=== PATIENT | male | born 1950 | race Caucasian/White ===

== ENCOUNTER 2021-09-01 10:03 | Outpatient (CLI) | payer MEDICARE, BC | END 2021-09-01 10:04 | disposition home or self-care (01) | LOC: TBSIIMAG 10:03 | PROVIDERS: ATTEND Orthopaedic Surgery | DX: M54.41 Lumbago with sciatica, right side (principal); M47.816 Spondylosis without myelopathy or radiculopathy, lumbar region | CPT/HCPCS: 72148 ==

== ENCOUNTER 2024-07-07 21:08 | Observation (INO) | payer MEDICARE, BC ==
[2024-07-07 22:40] VITALS: BMI 36.0
[2024-07-07] MEDS ORDERED: Acetaminophen 325 MG TAB PO PRN (23:23)
[2024-07-07] MEDS ORDERED: Ondansetron PF 4 MG/2 ML Vial IVP PRN (23:23)
[2024-07-07] MEDS ORDERED: Insulin Lispro 100 UNIT/ML 10 ML VIAL SC PRN ×2 (23:25)
[2024-07-07] MEDS ORDERED: Dextrose 5% in Water 1,000 ML IV PRN (23:25)
[2024-07-07] MEDS ORDERED: Glucagon 1 MG/ML KIT IM PRN (23:25)
[2024-07-07] MEDS ORDERED: Dextrose 50% Abboject 50 ML SYRINGE SLOW IVP PRN (23:25)
[2024-07-08] MEDS: Morphine 2 MG/ML VIAL SLOW IVP PRN (00:04)
[2024-07-08] MEDS: Piperacillin/Tazobactam 3.375 GM in Sodium Chloride 0.9% 100 ML IVPB SCH (00:07)
[2024-07-08] MEDS: Sodium Chloride 0.9% 500 ML IV SCH (00:32)
[2024-07-08 08:16] VITALS: TEMP 97.8
[2024-07-08 08:35] LABS: #Basophils Less than 0.03 10x3/uL (0.0-0.2); %Basophils 0.2 % (0.0-1.0); %Eosinophils 0.5 % (0.0-10.0); %Lymphocytes 7.6 % (21.0-51.0); %Neutrophils 86.1 % (42.0-75.0); Hematocrit 40.7 % (42.0-52.0); Hemoglobin 12.8 g/dL (14.0-18.0); Mean Corpuscular HGB CONC 31.4 g/dL (32.0-36.0); Mean Corpuscular Hemoglobin 25.5 pg (27.0-31.0); Mean Corpuscular Volume 81.2 fL (78.0-98.0); Mean Platelet Volume 12.6 fL (7.4-10.4); Platelet Count 111 10x3/uL (130-400); RBC Distribution Width 14.6 % (11.5-14.5); Red Blood Cell (RBC) Count 5.01 mill/uL (4.70-6.10)
[2024-07-08 08:43] LABS: Anion Gap 10 mmol/L (10-20); BUN (Urea Nitrogen) 17 mg/dL (8.4-25.7); Calc. Creatinine Clearance 92 mL/min (70-130); Calcium 8.7 mg/dL (7.8-10.44); Carbon Dioxide 27 mmol/L (23-31); Chloride 106 mmol/L (98-107); Estimated GFR 54; Glucose 156 mg/dL (83-110); Potassium 4.1 mmol/L (3.5-5.1); Sodium 139 mmol/L (136-145)
[2024-07-08] MEDS: Allopurinol 300 MG TAB PO SCH (08:57)
[2024-07-08] MEDS: Multivit, Therapeutic 1 TAB PO SCH (08:57)
[2024-07-08] MEDS: Cholecalciferol 1,000 UNITS (25 MCG) TAB PO SCH (08:57)
[2024-07-08] MEDS: Finasteride 5 MG TAB PO SCH (08:58)
[2024-07-08] MEDS: Hydrochlorothiazide 25 MG TAB PO SCH (08:58)
[2024-07-08] MEDS: Atenolol 50 MG TAB PO SCH (08:58)
[2024-07-08] MEDS: Cyanocobalamin (Vitamin B-12) 1,000 MCG TAB PO SCH (08:58)
[2024-07-08] MEDS ORDERED: Non-Formulary Item 1 EACH (Cholecalciferol (Vitamin D3) [Vitamin D3] 50 MCG Capsule) PO SCH (09:00)
[2024-07-08] MEDS ORDERED: CYANOCOBALAMIN 500 MCG PO SCH (09:00)
[2024-07-08] MEDS ORDERED: Non-Formulary Item 1 EACH (Multivitamin [Multivitamin] 1 EACH Tablet) PO SCH (09:00)
[2024-07-08] MEDS ORDERED: Atenolol 50 MG TAB PO SCH (09:00)
[2024-07-08] MEDS ORDERED: Allopurinol 300 MG TAB PO SCH (09:00)
[2024-07-08] MEDS: Sodium Chloride 0.9% 100 ML ONE (11:53)
[2024-07-08 12:19] VITALS: BP 127/71
[2024-07-08] MEDS ORDERED: Tamsulosin HCl 0.4 MG CAP PO SCH ×2 (21:00)
== END 2024-07-08 14:45 | disposition home or self-care (01) ==
LOC: T4-B 21:55
PROVIDERS: ADMIT Internal Medicine; ATTEND Internal Medicine
DX: R10.32 Left lower quadrant pain (principal); I10 Essential (primary) hypertension; E11.9 Type 2 diabetes mellitus without complications; K21.9 Gastro-esophageal reflux disease without esophagitis; N40.0 Benign prostatic hyperplasia without lower urinary tract symptoms; N17.9 Acute kidney failure, unspecified; I72.8 Aneurysm of other specified arteries; K57.30 Diverticulosis of large intestine without perforation or abscess without bleeding; M10.9 Gout, unspecified; Z79.51 Long term (current) use of inhaled steroids; Z79.82 Long term (current) use of aspirin; Z79.899 Other long term (current) drug therapy; Z90.49 Acquired absence of other specified parts of digestive tract; Z98.890 Other specified postprocedural states; Z98.52 Vasectomy status; Z87.891 Personal history of nicotine dependence
CPT/HCPCS: 80048; 82962; 85025; 96374; 96375; 96376; G0378 ×2; J2272; J2543; J7030; 36415; 36416